=== PATIENT | female | born 1995 | race Caucasian/White ===

== ENCOUNTER 2018-09-25 20:44 | Emergency (ER) | payer OTHER ==
[~2018-09-25] VITALS: Ht 157.5 cm; Wt 70.3 kg
[~2018-09-25 20:44] MED LIST: BENADRYL25 MG PO; CIPDEXSU OT; PRED10; RXTRAM50 PO
== END 2018-09-25 21:08 | disposition home or self-care (01) ==
LOC: ER 20:44
DX: O99.89 Other specified diseases and conditions complicating pregnancy, childbirth and the puerperium (principal); R51 Headache; Z3A.10 10 weeks gestation of pregnancy
CPT/HCPCS: 99283

== ENCOUNTER → 2018-09-27 | Outpatient (CLI) | payer OTHER ==
[~2018-09-27] MED LIST changes: +PRENATAL TABLE1 EAC2 PO
[2018-09-30 00:06] LABS: CHLAMYDIA TRACHOMATIS, NAA Negative (Negative); NEISSERIA GONORRHOEAE, NAA Negative (Negative)
== END | disposition home or self-care (01) ==
LOC: LAB 15:56 → LAB SHORT 15:56
PROVIDERS: Family Medicine
DX: Z34.00 Encounter for supervision of normal first pregnancy, unspecified trimester (principal); Z3A.09 9 weeks gestation of pregnancy
CPT/HCPCS: 87491; 87591; G0123

== ENCOUNTER 2018-12-23 07:40 | Emergency (ER) | payer OTHER ==
[~2018-12-23] VITALS: Ht 160 cm; Wt 74.8 kg
[~2018-12-23 07:40] MED LIST changes: -PRENATAL TABLE1 EAC2 PO
[2018-12-23] MEDS ORDERED: PRENATAL TABLE1 EAC2 PO (07:51)
== END 2018-12-23 08:48 | disposition home or self-care (01) ==
LOC: ER 07:40
DX: O99.712 Diseases of the skin and subcutaneous tissue complicating pregnancy, second trimester (principal); L23.7 Allergic contact dermatitis due to plants, except food; Z3A.23 23 weeks gestation of pregnancy
CPT/HCPCS: 99282

== ENCOUNTER → 2019-01-24 | Outpatient (CLI) | payer OTHER ==
[~2019-01-24] MED LIST changes: +PRENATAL TABLE1 EAC2 PO
[2019-01-24 14:29] LABS: BASOPHILS ABSOLUTE AUTO 0.05 K/mm3 (0.00-0.23); BASOPHILS PERCENT AUTO 1 % (0-2); EOSINOPHILS ABSOLUTE AUTO 0.13 K/mm3 (0.00-0.68); EOSINOPHILS PERCENT AUTO 2 % (0-6); Hematocrit 32.8 % (33.0-51.0); Hemoglobin 10.9 g/dL (11.5-16.0); IMMATURE GRAN ABSOLUTE AUTO 0.05 K/mm3 (0.00-0.10); IMMATURE GRAN PERCENT AUTO 1 % (0-1); LYMPHOCYTES PERCENT AUTO 16 % (21-46); MONOCYTES ABSOLUTE AUTO 0.42 K/mm3 (0.16-1.47); MONOCYTES PERCENT AUTO 5 % (4-13); Mean Corpuscular HGB 29.9 pg (26.0-34.0); Mean Corpuscular HGB Conc 33.2 g/dL (31.5-36.5); Mean Corpuscular Volume 90 fL (80-100); Mean Platelet Volume 10.4 fL (9.1-12.4); NEUTROPHILS ABSOLUTE AUTO 6.45 K/mm3 (1.96-9.15); NEUTROPHILS PERCENT AUTO 77 % (41-73); Platelet Count 215 K/mm3 (150-400); RDW Coefficient Variation 13.1 % (11.7-14.2); RDW Standard Deviation 42.6 fL (35.1-46.3); Red Blood Cell Count 3.64 M/mm3 (3.80-5.20)
== END | disposition home or self-care (01) ==
LOC: LAB SHORT 12:12 → LAB 12:12
PROVIDERS: Family Medicine
DX: Z34.02 Encounter for supervision of normal first pregnancy, second trimester (principal)
CPT/HCPCS: 82950; 85025

== ENCOUNTER → 2019-04-03 | Outpatient (CLI) | payer OTHER ==
[~2019-04-03] MED LIST changes: +ACYC800 PO; +HIGH POTENCY I134 MG PO; +IBUP800
== END | disposition home or self-care (01) ==
LOC: LAB SHORT 16:58 → LAB 16:58
DX: Z34.03 Encounter for supervision of normal first pregnancy, third trimester (principal); Z3A.36 36 weeks gestation of pregnancy
CPT/HCPCS: 87081; 87653

== ENCOUNTER → 2019-04-12 | Outpatient (CLI) | payer OTHER ==
[2019-04-12 18:31] LABS: Protein, Urine Random 17.5 mg/dL (0.0-11.9); Protein/Creat Ratio, Ur Random 0.1
== END | disposition home or self-care (01) ==
LOC: LAB SHORT 15:52 → LAB 15:52
PROVIDERS: Family Medicine
DX: Z34.03 Encounter for supervision of normal first pregnancy, third trimester (principal)
CPT/HCPCS: 82570; 84156

== ENCOUNTER 2019-04-18 07:56 | Inpatient (IN) | payer OTHER ==
[~2019-04-18] VITALS: Ht 157.5 cm; Wt 85.0 kg
[~2019-04-18 07:56] MED LIST changes: -ACYC800 PO; -HIGH POTENCY I134 MG PO; -IBUP800
[2019-04-18 09:49] LABS: Hematocrit 35.1 % (33.0-51.0); Hemoglobin 11.8 g/dL (11.5-16.0); Mean Corpuscular HGB 28.8 pg (26.0-34.0); Mean Corpuscular HGB Conc 33.6 g/dL (31.5-36.5); Mean Corpuscular Volume 86 fL (80-100); Mean Platelet Volume 10.9 fL (9.1-12.4); Platelet Count 203 K/mm3 (150-400); RDW Coefficient Variation 13.4 % (11.7-14.2); RDW Standard Deviation 41.8 fL (35.1-46.3); White Blood Cell Count 12.15 K/mm3 (4.00-11.30)
[2019-04-18 10:08] LABS: BASOPHILS PERCENT MAN 0 % (0-2); EOSINOPHILS ABSOLUTE MAN 0.12 K/mm3 (0.00-0.68); EOSINOPHILS PERCENT MAN 1 % (0-6); LYMPHOCYTES ABSOLUTE MAN 1.33 K/mm3 (0.84-5.20); LYMPHOCYTES PERCENT MAN 11 % (21-46); MONOCYTES ABSOLUTE MAN 0.72 K/mm3 (0.16-1.47); MONOCYTES PERCENT MAN 6 % (4-13); NEUTROPHILS ABSOLUTE MAN 9.96 K/mm3 (1.96-9.15); SEG NEUTROPHILS PERCENT MAN 82 % (41-73); TOTAL CELLS COUNTED 100
[2019-04-18 10:09] LABS: Alanine Aminotransfer (ALT/SGP 18 U/L (12-78); Albumin, Blood 2.8 g/dL (3.4-5.0); Albumin/Globulin Ratio 0.7 (0.8-1.8); Alk Phos 163 U/L (50-136); Anion Gap 10 mmol/L (6-16); Aspartate Aminotrans (AST/SGOT 23 U/L (12-37); Bilirubin, Total 0.6 mg/dL (0.1-1.0); Blood Urea Nitrogen 5 mg/dL (8-24); CO2, Blood 23 mmol/L (21-32); Chloride, Blood 109 mmol/L (98-108); Creatinine, Blood 0.63 mg/dL (0.40-1.00); Glomerular Filtration Rate >60 (60-); Glucose, Blood 77 mg/dL (70-99); Potassium, Blood 3.5 mmol/L (3.5-5.5); Sodium, Blood 142 mmol/L (136-145); Total Protein, Blood 6.8 g/dL (6.4-8.2)
[2019-04-18 11:17] LABS: Creatinine, Urine Random 9.82 mg/dL (27.00-270.00); Protein, Urine Random 19.1 mg/dL (0.0-11.9); Protein/Creat Ratio, Ur Random 1.9
[2019-04-18] MEDS ORDERED: HIGH POTENCY I134 MG PO (12:20)
[2019-04-18] MEDS ORDERED: ACYC800 PO (12:21)
--- NOTE | 2019-04-18 15:30 | NUR ---
FOMarsha OUTBURST PATIENT'S MOTHER REENTERED ROOM AFTER WAITING OUTSIDE FOR EPIDURAL PLACEMENT. FOMarsha REACTED TO HER IMPATIENCE BY YELLING AT HER, TELLING HER "THIS IS MY BABY, YOU DON'T NEED TO BE HERE!" IT WAS VERY LOUD AND DISRUPTIVE, NURSING STAFF COULD HEAR HIS ANGRY OUTBURST DOWN THE M[place].
[2019-04-19 06:55] LABS: BASOPHILS ABSOLUTE AUTO 0.06 K/mm3 (0.00-0.23); BASOPHILS PERCENT AUTO 0 % (0-2); EOSINOPHILS ABSOLUTE AUTO 0.08 K/mm3 (0.00-0.68); EOSINOPHILS PERCENT AUTO 1 % (0-6); Hematocrit 31.4 % (33.0-51.0); Hemoglobin 10.4 g/dL (11.5-16.0); IMMATURE GRAN ABSOLUTE AUTO 0.07 K/mm3 (0.00-0.10); IMMATURE GRAN PERCENT AUTO 1 % (0-1); LYMPHOCYTES ABSOLUTE AUTO 2.23 K/mm3 (0.84-5.20); LYMPHOCYTES PERCENT AUTO 15 % (21-46); MONOCYTES ABSOLUTE AUTO 1.19 K/mm3 (0.16-1.47); MONOCYTES PERCENT AUTO 8 % (4-13); Mean Corpuscular HGB 28.6 pg (26.0-34.0); Mean Corpuscular HGB Conc 33.1 g/dL (31.5-36.5); Mean Corpuscular Volume 86 fL (80-100); Mean Platelet Volume 11.3 fL (9.1-12.4); NEUTROPHILS ABSOLUTE AUTO 11.17 K/mm3 (1.96-9.15); NEUTROPHILS PERCENT AUTO 76 % (41-73); Platelet Count 210 K/mm3 (150-400); RDW Coefficient Variation 13.8 % (11.7-14.2); RDW Standard Deviation 43.2 fL (35.1-46.3); Red Blood Cell Count 3.64 M/mm3 (3.80-5.20)
[2019-04-19] MEDS ORDERED: IBUP800 (19:43)
--- NOTE | 2019-04-19 21:08 | NUR ---
Pt. and significant other given written and verbal discharge instructions. questions answered and verbalize understanding. pt will call to make appt with dr hedrick for follow up within a few weeks as well as return back to [facility] sunday 04/23 @ 1100 for ppfu. extra pads given, bleeding and vitals wnl. dc'd @ 2044
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
== END 2019-04-19 22:00 | disposition home or self-care (01) | DRG 807 ==
LOC: BC 07:56 → OBS 07:56 → BC 07:57 → OBS 11:35 → BC 11:35
PROVIDERS: ADMIT Family Medicine
PROC: 10E0XZZ Delivery of Products of Conception, External Approach (ICD-10-PCS; principal; 2019-04-18)
PROC: 10907ZC Drainage of Amniotic Fluid, Therapeutic from Products of Conception, Via Natural or Artificial Opening (ICD-10-PCS; 2019-04-18)
PROC: 0HQ9XZZ Repair Perineum Skin, External Approach (ICD-10-PCS; 2019-04-18)
PROC: 3E0R3BZ Introduction of Anesthetic Agent into Spinal Canal, Percutaneous Approach (ICD-10-PCS; 2019-04-18)
DX: O13.4 Gestational [pregnancy-induced] hypertension without significant proteinuria, complicating childbirth (principal); Z37.0 Single live birth; Z3A.38 38 weeks gestation of pregnancy; O70.0 First degree perineal laceration during delivery
CPT/HCPCS: 36415; 51702; 59025; 80053; 81003; 82570; 84156; 85007; 85025; 85027; 86850; 86900; 86901; J1885; J2001; J2405; J2590; J3010; J7120

== ENCOUNTER → 2024-01-26 | Outpatient (CLI) | payer OTHER ==
[~2024-01-26] MED LIST changes: +ACYC800 PO; +HIGH POTENCY I134 MG PO; +IBUP800
== END ==
LOC: LAB SHORT 11:57 → LAB 11:57
DX: R30.0 Dysuria (principal)
CPT/HCPCS: 87086

== ENCOUNTER → 2024-02-09 | Outpatient (CLI) | payer OTHER | LOC: LAB 12:09 → LAB SHORT 12:09 | DX: Z34.03 Encounter for supervision of normal first pregnancy, third trimester (principal); Z3A.36 36 weeks gestation of pregnancy | CPT/HCPCS: 87081; 87086; 87150 ==

== ENCOUNTER 2024-03-12 19:55 | Inpatient (IN) | payer OTHER ==
[~2024-03-12] VITALS: Ht 157.5 cm; Wt 85.5 kg
[2024-03-12] MEDS ORDERED: Misoprostol 200 MCG Tab PR PRN (20:05)
[2024-03-12] MEDS ORDERED: ePHEDrine Sulfate 50 MG/ML 1ML Injection XX PRN (20:05)
[2024-03-12] MEDS ORDERED: Oxytocin 10 Unit / ML Vial IM PRN (20:05)
[2024-03-12] MEDS ORDERED: Tranexamic Acid 1,000 MG in NS 100 ML IV SCH (20:05)
[2024-03-12] MEDS ORDERED: Carboprost Tromethamine 250 MCG/ML 1ML Amp IM PRN (20:05)
[2024-03-12] MEDS ORDERED: FentaNYL 2mcg/ml-Bup 0.1% Epd 250 ML EPI PRN (20:05)
[2024-03-12] MEDS ORDERED: Methylergonovine Maleate 0.2MG / ML 1ML Amp IM PRN (20:05)
[2024-03-12] MEDS ORDERED: Misoprostol 200 MCG Tab BC PRN (20:05)
[2024-03-12] MEDS ORDERED: Lactated Ringer's 1,000 ML IV PRN ×4 (20:05→20:10)
[2024-03-12] MEDS ORDERED: OXYTOCIN/RINGER'S LACTATE 500 ML IV PRN ×2 (20:05→20:10)
[2024-03-12] MEDS ORDERED: Misoprostol 25 MCG Tab VAG PRN (20:10)
[2024-03-12] MEDS ORDERED: Ondansetron HCl 2 MG / ML 2ML Vial IV PRN (20:10)
[2024-03-12] MEDS ORDERED: Acetaminophen 500 MG Tab PO PRN (20:10)
[2024-03-12] MEDS ORDERED: Calcium Carbonate 500 MG Tab Chew PO PRN (20:10)
[2024-03-12 20:42] VITALS: BP 121/77
[2024-03-12 20:46] LABS: BASOPHILS ABSOLUTE AUTO 0.07 K/mm3 (0.00-0.23); BASOPHILS PERCENT AUTO 1 % (0-2); EOSINOPHILS ABSOLUTE AUTO 0.08 K/mm3 (0.00-0.68); EOSINOPHILS PERCENT AUTO 1 % (0-6); Hematocrit 34.8 % (33.0-51.0); Hemoglobin 11.9 g/dL (11.5-16.0); IMMATURE GRAN ABSOLUTE AUTO 0.05 K/mm3 (0.00-0.10); IMMATURE GRAN PERCENT AUTO 0 % (0-1); LYMPHOCYTES ABSOLUTE AUTO 2.17 K/mm3 (0.84-5.20); LYMPHOCYTES PERCENT AUTO 19 % (21-46); MONOCYTES PERCENT AUTO 5 % (4-13); Mean Corpuscular HGB 27.9 pg (26.0-34.0); Mean Corpuscular HGB Conc 34.2 g/dL (31.5-36.5); Mean Corpuscular Volume 82 fL (80-100); Mean Platelet Volume 10.8 fL (9.1-12.4); NEUTROPHILS ABSOLUTE AUTO 8.67 K/mm3 (1.96-9.15); NEUTROPHILS PERCENT AUTO 75 % (41-73); Platelet Count 228 K/mm3 (150-400); RDW Coefficient Variation 14.3 % (11.7-14.2); RDW Standard Deviation 41.6 fL (35.1-46.3); Red Blood Cell Count 4.26 M/mm3 (3.80-5.20); White Blood Cell Count 11.64 K/mm3 (4.00-11.30)
[2024-03-12 21:50] VITALS: BP 103/59
[2024-03-12 22:20] VITALS: BP 108/58
[2024-03-12 22:51] VITALS: BP 109/63
[2024-03-12 23:21] VITALS: BP 107/64
[2024-03-12 23:51] VITALS: BP 105/53
[2024-03-13] VITALS (23 sets, daily range): BP systolic 107–147; BP diastolic 59–96
[2024-03-13] MEDS ORDERED: Naloxone HCl 0.4MG / ML 1ML Vial IV PRN (03:45)
[2024-03-13] MEDS ORDERED: DiphenhydrAMINE HCl 50 MG/ML 1ML Vial IV PRN (03:45)
[2024-03-13] MEDS ORDERED: ePHEDrine Sulfate 50 MG/ML 1ML Injection IV PRN (03:45)
[2024-03-13] MEDS ORDERED: Ondansetron HCl 2 MG / ML 2ML Vial IV PRN (03:45)
[2024-03-13] MEDS ORDERED: Metoclopramide HCl 5MG / ML 2ML Vial IV PRN (03:45)
[2024-03-13] MEDS ORDERED: Lidocaine 2% 5 ML SDV ONE (04:05)
[2024-03-13] MEDS ORDERED: Lidocaine 2% 5 ML SDV EPI ONE (04:10)
[2024-03-13] MEDS ORDERED: Misoprostol 200 MCG Tab PR PRN (05:20)
[2024-03-13] MEDS ORDERED: OxyCODONE 5 mg/Acetamin 325 mg TABLET PO PRN (05:20)
[2024-03-13] MEDS ORDERED: Acetaminophen 325 MG TABLET PO PRN (05:20)
[2024-03-13] MEDS ORDERED: Lactated Ringer's 1,000 ML IV SCH (05:20)
[2024-03-13] MEDS ORDERED: Methylergonovine Maleate 0.2MG / ML 1ML Amp IM PRN (05:25)
[2024-03-13] MEDS ORDERED: Carboprost Tromethamine 250 MCG/ML 1ML Amp IM PRN (05:25)
[2024-03-13] MEDS ORDERED: Witch Hazel/Glycerin PADS TOP PRN (05:25)
[2024-03-13] MEDS ORDERED: Misoprostol 100 MCG Tab PO PRN (05:25)
[2024-03-13] MEDS ORDERED: Benzocaine Topical Anesthetic Spray 60GM TOP PRN (05:25)
[2024-03-13] MEDS ORDERED: FLU VACC TS2024-25(6MOS UP)/PF 45 MCG/0.5 ML SYRINGE IM ONE (05:25)
[2024-03-13] MEDS ORDERED: Ketorolac Tromethamine 30mg Vial IV PRN (05:45)
[2024-03-13] MEDS ORDERED: Ketorolac Tromethamine 30mg Vial IV SCH (06:00)
[2024-03-13] MEDS ORDERED: Misoprostol 200 MCG Tab BC PRN (06:05)
[2024-03-13] MEDS ORDERED: Lanolin Cream TOP PRN (06:10)
[2024-03-13] MEDS ORDERED: Prenatal Vit/FE Fumarate/FA 1 Tab PO SCH ×2 (09:00)
[2024-03-13] MEDS ORDERED: Docusate Sodium 100 MG Cap PO SCH (09:00)
[2024-03-13] MEDS ORDERED: Acetaminophen 500 MG Tab PO PRN (11:20)
[2024-03-14 00:32] VITALS: BP 114/62
[2024-03-14 05:15] VITALS: BP 115/62
[2024-03-14 05:55] LABS: BASOPHILS ABSOLUTE AUTO 0.07 K/mm3 (0.00-0.23); BASOPHILS PERCENT AUTO 1 % (0-2); EOSINOPHILS ABSOLUTE AUTO 0.21 K/mm3 (0.00-0.68); EOSINOPHILS PERCENT AUTO 2 % (0-6); Hematocrit 29.8 % (33.0-51.0); IMMATURE GRAN ABSOLUTE AUTO 0.05 K/mm3 (0.00-0.10); IMMATURE GRAN PERCENT AUTO 0 % (0-1); LYMPHOCYTES ABSOLUTE AUTO 2.92 K/mm3 (0.84-5.20); LYMPHOCYTES PERCENT AUTO 24 % (21-46); MONOCYTES ABSOLUTE AUTO 0.89 K/mm3 (0.16-1.47); MONOCYTES PERCENT AUTO 7 % (4-13); Mean Corpuscular HGB 28.1 pg (26.0-34.0); Mean Corpuscular HGB Conc 33.6 g/dL (31.5-36.5); Mean Corpuscular Volume 84 fL (80-100); NEUTROPHILS ABSOLUTE AUTO 8.26 K/mm3 (1.96-9.15); NEUTROPHILS PERCENT AUTO 67 % (41-73); Platelet Count 189 K/mm3 (150-400); RDW Coefficient Variation 14.4 % (11.7-14.2); Red Blood Cell Count 3.56 M/mm3 (3.80-5.20)
[2024-03-14] MEDS ORDERED: Ibuprofen 400 MG Tab PO PRN ×2 (06:00)
[2024-03-14 07:46] VITALS: BP 117/68
[2024-03-14 12:15] VITALS: BP 134/66
--- NOTE | 2024-03-14 13:00 | NUR ---
No acute changes t/o shift. Pt reviewed printed d/c instructions and declines additional teaching. Verbalized understanding of clinin and post clinic follow up. ID bands matched w/nb and verification form. Pt d/c'd home ambulatory to care of .
== END 2024-03-14 13:20 | disposition home or self-care (01) | DRG 768 ==
LOC: OBS 19:55 → BC 19:57 → OBS 20:11 → BC 20:11
PROVIDERS: ADMIT Family Medicine
PROC: 3E0P7VZ Introduction of Hormone into Female Reproductive, Via Natural or Artificial Opening (ICD-10-PCS; 2024-03-12)
PROC: 10E0XZZ Delivery of Products of Conception, External Approach (ICD-10-PCS; principal; 2024-03-13)
PROC: 0TQD0ZZ Repair Urethra, Open Approach (ICD-10-PCS; 2024-03-13)
PROC: 10907ZC Drainage of Amniotic Fluid, Therapeutic from Products of Conception, Via Natural or Artificial Opening (ICD-10-PCS; 2024-03-13)
DX: O48.0 Post-term pregnancy (principal); Z37.0 Single live birth; O71.5 Other obstetric injury to pelvic organs; Z3A.41 41 weeks gestation of pregnancy
CPT/HCPCS: 36415; 85025; 86850; 86900; 86901; A9270; J1885; J2590; J7120

== ENCOUNTER → 2024-04-25 | Outpatient (CLI) | payer OTHER | END | disposition home or self-care (01) | LOC: LAB SHORT 11:41 → LAB 11:41 | PROVIDERS: Family Medicine | DX: Z12.4 Encounter for screening for malignant neoplasm of cervix (principal) | CPT/HCPCS: G0123 ==